=== PATIENT | male | born 1945 | race Caucasian/White ===

== ENCOUNTER 2020-02-19 09:37 | Emergency (ER) | payer OTHER, SELFPAY ==
[2020-02-19] VITALS (25 sets, daily range): BP systolic 67–194; BP diastolic 39–112; PULSE 90–121; RESP 0–29; TEMP 36.9; O2SAT 86–98; BMI 34.8
--- NOTE | 2020-02-19 10:06 | XR_ITS ---
WS: [id number] Portable AP upright chest, 02/19/2020 Clinical Data: dyspnea Comparison: Portable chest, 07/21/2014 Findings: Bilateral opacities in the lungs which probably represent pneumonia are present. The heart is normal. No nodules, masses or effusions are seen. Midline sternotomy sutures are present. The aort ic arch and descending aorta show calcification and tortuosity. Monitor leads are on the chest wall. 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 XR/XR chest 1V portable [id number] Impression: Bilateral opacities of the lungs which probably represent pneumonia.
[2020-02-19 10:32] LABS: ABG PCO2 57.2 mmHg (35-45); ABG PH Result 7.38 (7.35-7.45); Arterial Blood Gas Hematocrit 41.9 % (42-52); Base Excess ABG 7.1 mmol/L (-2.0-2.0); Blood Gas Operator Identificat CK; Blood Gas Sample Site Brachial, left; Blood Gas Sample Type Arterial; HCO3 ABG 34.1 mmol/L (22-26); Oxygen Device NC; PO2 ABG 57.7 mmHg (80.0-100.0)
--- NOTE | 2020-02-19 10:36 | PC.NURSE ---
pt here for fall but Pt has covid symptoms. Pt has audible wheezes heard throughout lungs anteriorly. Pt has course lung sounds throughout. pt has intermittent fevers and productive cough reported.
[2020-02-19 10:52] LABS: Basophils % 0.2 %; Hematocrit 45.3 % (42.0-52.0); Hemoglobin 13.9 g/dL (11.7-16.6); Lymphocytes # 0.5 10^3/uL (0.8-4.8); Lymphocytes % 7.4 %; Mean Corpuscular HGB Conc 30.7 g/dL (30.0-36.0); Mean Corpuscular Hemoglobin 27.6 pg (28.0-34.0); Mean Corpuscular Volume 89.9 fL (80-94); Mean Platelet Volume 10.4 fL (7.4-10.4); Monocytes # 0.3 10^3/uL (0.2-0.9); Neutrophils # 5.73 10^3/uL (1.8-7.7); Neutrophils % 87.1 %; Nucleated Red Blood Cells % 0 %; Platelet Count 175 10^3/cmm (130-400); Red Blood Count 5.04 10^6/uL (4.1-5.3); White Blood Count 6.6 10^3/uL (4.0-10.0)
[2020-02-19 10:55] LABS: Lactic Sepsis W/Reflex 1.3 mmol/L (0.5-2.2)
[2020-02-19 11:05] LABS: Add Urine Culture? No; Add Urine Microscopic? YES; Bacteria Urine 1+ /hpf; Bilirubin Urine 1+ (Negative); Blood Urine 2+ (Negative); Glucose Urine UA Trace (Normal); Ketones Urine 1+ (Negative); Leukocyte Esterase Urine Negative (Negative); Mucus Urine 2+ /hpf; Nitrate Urine Negative (Negative); Protein Urine 1+ (Negative); RBC Urine 0-4 /hpf (0-2); Urine Appearance Hazy (CLEAR); Urine Color Dark Yellow (Yellow); Urobilinogen Urine 4 mg/dL (Negative); WBC Urine 0-4 /hpf (0-5)
--- NOTE | 2020-02-19 11:15 | W.ED.FALL ---
HPI - Fall General: Chief Complaint: Fall Stated Complaint: FALL/ FEVER/ POSSIBLE COVID Time Seen by Provider: 02/19/20 10:05 History of Present Illness: HPI Narrative: 75-year-old male presents emergency room after a fall at home EMS [facility] health care nurse found him down he has been getting progressively worsening for the last week he has been sick with a cough and congestion he has not been eating or drinking well. He said intermittent fever cough and shortness of breath. Patient usually wears 5 L/min nasal cannula. MD complaint: fall Onset (ago): minute(s) Fall from: chair Fall witnessed: yes, by family Place fall occurred: home Loss of consciousness: None Prolonged down time: no Symptoms prior to fall: none Context: tripped/slipped Associated symptoms-after fall: Reports lightheadedness, short of breath and weakness; Denies abdominal pain, chest pain, confusion, difficulty walking, headache(s), hematuria, neck pain, numbness or vertigo Review of Systems Const: Denies: fever(s), chills, body aches, change in appetite, fatigue or malaise ENMT: Denies: throat pain, ear or mastoid pain, nasal discharge or nasal congestion Card: Reports: lightheadedness; Denies: chest pain Resp: Denies: dyspnea, productive cough or non-productive cough GI: Denies: abdominal pain : Denies: hematuria Musc: Denies: neck pain Skin/Breast: Denies: rash or pruritus Neuro: Denies: headache(s), difficulty walking, vertigo or confusion [facility] ED PFSH: Medical History (Updated 02/21/20 @ 11:30 by Magdiel Doan DO) Congestive heart failure COPD (chronic obstructive pulmonary disease) CPAP (continuous positive airway pressure) dependence Surgical History (Updated 02/21/20 @ 11:30 by Magdiel Doan DO) History of heart surgery History of surgery Physical Exam Const: COMMON NORMALS: average body habitus, patient oriented x3 and alert GENERAL APPEARANCE: cooperative, comfortable, well kempt and well developed NUTRITIONAL APPEARANCE: obese ORIENTATION/CONSCIOUSNESS: Yes awake, Yes oriented to person and Yes oriented to place HENMT: COMMON NORMALS: normocephalic, atraumatic, EAC's normal, TM's normal bilaterally, Normal external nose present, moist oral mucous membranes and oropharynx normal HEAD & SCALP: normocephalic and atraumatic NOSE: Normal external nose present EXTERNAL AUDITORY CANAL: EAC's normal TYMPANIC MEMBRANE: TM's normal bilaterally MOUTH: Normal oral and palatal mucosa present, lip normal and tongue normal THROAT: posterior oropharynx normal and tonsils normal Eye: COMMON NORMALS: Equal, round and reactive pupils present, EOMs intact bilaterally, conjunctivae normal and no scleral icterus CONJUNCTIVA: Yes conjunctivae normal PUPIL: Yes Equal, round and reactive pupils present Neck/C-Spine: COMMON NORMALS: full ROM, no lymphadenopathy, supple, no meningeal signs and Thyroid normal THYROID: Thyroid normal and asymmetrical Lymph: LYMPHATIC: no lymphadenopathy noted Resp: COMMON NORMALS: normal respiratory effort, No retractions, No use of accessory muscles and clear to auscultation bilaterally AUSCULTATION: clear to auscultation bilaterally Cardio: COMMON NORMALS: regular rate and regular rhythm RATE: regular rate RHYTHM: regular rhythm HEART SOUNDS: no murmurs GI: COMMON NORMALS: Normal to inspection, nondistended, normoactive bowel sounds present, Soft to palpation and No hepatosplenomegaly present PALPATION: Yes Soft to palpation and Yes No hepatosplenomegaly present : COMMON NORMALS: Yes no CVA tenderness BLADDER/KIDNEY EXAM: Yes no CVA tenderness Back/Pelvis: COMMON NORMALS: no CVA tenderness LUMBAR SPINE/LOWER BACK: Yes normal to inspection Extremity: COMMON NORMALS: no clubbing, cyanosis or edema, no calf tenderness and no pedal edema Neuro: COMMON NORMALS: patient oriented x3 SENSORIUM/ORIENTATION: Yes alert, Yes oriented to person and Yes oriented to place MENINGEAL SIGNS: Yes no meningeal signs Psych: APPEARANCE: Yes well kempt Skin: COMMON NORMALS: no rashes or lesions noted and turgor normal GENERAL SKIN EXAM: no rashes or lesions noted and turgor normal Procedures Intubation Time out performed: Yes sedative: Etomidate paralytic: Succinylcholine Laryngoscope: fiber optic video scope Assist Device Used: fiber optic device ET Tube Size: 8 ET Tube Uncuffed: No Tube Secured Depth (cm): 22 Tube Secured Location: teeth Tube Placement Confirmation: visualized tube passing through cords, equal breath sounds bilaterally, no breath sounds over epigastrium and confirmation by capnometry Patient Tolerated Procedure: well Intubation Complications: none Course Vital Signs: Vital signs: Vital Signs Temperature 98.4 F 02/19/20 09:50 Pulse Rate 103 H 02/19/20 16:25 Respiratory Rate 14 02/19/20 16:25 Blood Pressure 128/67 02/19/20 16:25 Pulse Oximetry 94 02/19/20 16:25 MDM - Fall MDM Narrative: Medical decision making narrative: Patient initially placed on high flow nasal cannula he became increasingly confused and would not keep it on. We discussed with him intubation he expressed wish to be intubated. After he was intubated we were finally able to get a hold of family members they stated he had been on hospice but that they wanted everything done and were revoking hospice. Patient will be transferred to [facility] for availability of viral ICU bed as well as options for advanced treatment. Given his severe COPD believe he will need proning and probable convalescent plasma another potential therapies that are not available here. Lab Data: Labs: Lab Results 02/19/20 02/19/20 02/19/20 Range/Units 10:15 10:15 10:15 WBC 6.6 (4.0-10.0) 10^3/ uL RBC 5.04 (4.1-5.3) 10^6/u L Hgb 13.9 (11.7-16.6) g/dL Hct 45.3 (42.0-52.0) % MCV 89.9 (80-94) fL MCH 27.6 L (28.0-34.0) pg MCHC 30.7 (30.0-36.0) g/dL RDW 13.0 (12.1-15.1) % Plt Count 175 (130-400) 10^3/c mm MPV 10.4 (7.4-10.4) fL Neut % (Auto) 87.1 % Lymph % (Auto) 7.4 % Bradford % (Auto) 5.0 % Eos % (Auto) 0.0 % Baso % (Auto) 0.2 % Neut # (Auto) 5.73 (1.8-7.7) 10^3/u L Lymph # (Auto) 0.5 L (0.8-4.8) 10^3/u L Bradford # (Auto) 0.3 (0.2-0.9) 10^3/u L Eos # (Auto) 0.0 (0.0-0.8) 10^3/u L Baso # (Auto) 0.0 (0.0-0.1) 10^3/u L Nucleated RBC % (a uto) 0 % Nucleated RBCs # 0.0 /100WBC Fibrinogen 783 H (174-498) mg/dL D-Dimer 2.23 H (0-0.59) ug/mIFE U Specimen Type Sample Site ABG pH (7.35-7.45) ABG pCO2 (35-45) mmHg ABG pO2 (80.0-100.0) mmH g ABG HCO3 (22-26) mmol/L ABG O2 Saturation ABG Base Excess (-2.0-2.0) mmol/ L Sunny Test A-a O2 Gradient (5-10) mmHg Hematocrit (42-52) % Hgb O2 Saturation (95-100) % Carboxyhemoglobin (0.4-20.1) %THgb Methemoglobin (0.4-1.5) % Total Hemoglobin (14-18) g/dL Ionized Calcium (1.1-1.4) mmol/L O2 Delivery Device O2 Liters/Min % FiO2 % Tidal Volume PEEP cmH20 Track Surfacing Machine Operator ID Sodium 141 (136-145) mmol/L Potassium 3.3 L (3.5-5.1) mmol/L Chloride 96 L (98-107) mmol/L Carbon Dioxide 31 H (22-29) mmol/L Anion Gap 17.3 (5-19) BUN 15 (8-23) mg/dL Creatinine 1.0 (0.7-1.2) mg/dL GFR Calculation Not Reportable Glucose 170 H (65-115) mg/dL Calculated Osmolal ity 297 H (285-295) mOsm/k g Lactic Acid (0.5-2.2) mmol/L Calcium 8.7 (8.5-10.5) mg/dL Magnesium 2.3 (1.7-2.3) mg/dL Ferritin 870 H (30-400) ng/mL Total Bilirubin 0.7 (0.15-1.2) mg/dL AST 43 H (0-40) U/L ALT 22 (0-41) U/L Alkaline Phosphata se 79 (40-130) IU/L Lactate Dehydrogen ase 451 H (135-225) U/L Creatine Kinase 46 (39-308) U/L C-Reactive Protein 194.6 H (0.0-4.9) mg/L NT-Pro-B Natriuret Pep 532 H (0-450) pg/mL Total Protein 7.0 (6.6-8.7) g/dL Albumin 3.6 (3.5-5.2) g/dL Globulin 3.4 (1.3-4.6) g/dL Procalcitonin 0.23 (0-0.5) ng/mL Urine Color (Yellow) Urine Appearance (CLEAR) Urine pH (5-7) Ur Specific Gravit y (1.005-1.030) Urine Protein (Negative) Urine Glucose (UA) (Normal) Urine Ketones (Negative) Urine Blood (Negative) Urine Nitrate (Negative) Urine Bilirubin (Negative) Urine Urobilinogen (Negative) mg/dL Ur Leukocyte Lillian ase (Negative) Urine RBC (0-2) /hpf Urine WBC (0-5) /hpf Ur Squamous Epith Cells (0-5) /hpf Amorphous Sediment Urine Bacteria (NONE) /hpf Urine Mucus /hpf SARS-CoV-2 Ag (Rap id) (Negative) 02/19/20 02/19/20 02/19/20 Range/Units 10:15 10:15 10:18 WBC (4.0-10.0) 10^3/ uL RBC (4.1-5.3) 10^6/u L Hgb (11.7-16.6) g/dL Hct (42.0-52.0) % MCV (80-94) fL MCH (28.0-34.0) pg MCHC (30.0-36.0) g/dL RDW (12.1-15.1) % Plt Count (130-400) 10^3/c mm MPV (7.4-10.4) fL Neut % (Auto) % Lymph % (Auto) % Bradford % (Auto) % Eos % (Auto) % Baso % (Auto) % Neut # (Auto) (1.8-7.7) 10^3/u L Lymph # (Auto) (0.8-4.8) 10^3/u L Bradford # (Auto) (0.2-0.9) 10^3/u L Eos # (Auto) (0.0-0.8) 10^3/u L Baso # (Auto) (0.0-0.1) 10^3/u L Nucleated RBC % (a uto) % Nucleated RBCs # /100WBC Fibrinogen (174-498) mg/dL D-Dimer (0-0.59) ug/mIFE U Specimen Type Arterial Sample Site Brachial, left ABG pH 7.38 (7.35-7.45) ABG pCO2 57.2 H (35-45) mmHg ABG pO2 57.7 L (80.0-100.0) mmH g ABG HCO3 34.1 H (22-26) mmol/L ABG O2 Saturation ABG Base Excess 7.1 H (-2.0-2.0) mmol/ L Sunny Test N/a A-a O2 Gradient (5-10) mmHg Hematocrit 41.9 L (42-52) % Hgb O2 Saturation (95-100) % Carboxyhemoglobin (0.4-20.1) %THgb Methemoglobin (0.4-1.5) % Total Hemoglobin (14-18) g/dL Ionized Calcium (1.1-1.4) mmol/L O2 Delivery Device Nc O2 Liters/Min 6.0 % FiO2 44.0 % Tidal Volume PEEP cmH20 Track Surfacing Machine Operator ID Ck Sodium (136-145) mmol/L Potassium (3.5-5.1) mmol/L Chloride (98-107) mmol/L Carbon Dioxide (22-29) mmol/L Anion Gap (5-19) BUN (8-23) mg/dL Creatinine (0.7-1.2) mg/dL GFR Calculation Glucose (65-115) mg/dL Calculated Osmolal ity (285-295) mOsm/k g Lactic Acid 1.3 (0.5-2.2) mmol/L Calcium (8.5-10.5) mg/dL Magnesium (1.7-2.3) mg/dL Ferritin (30-400) ng/mL Total Bilirubin (0.15-1.2) mg/dL AST (0-40) U/L ALT (0-41) U/L Alkaline Phosphata se (40-130) IU/L Lactate Dehydrogen ase (135-225) U/L Creatine Kinase (39-308) U/L C-Reactive Protein (0.0-4.9) mg/L NT-Pro-B Natriuret Pep (0-450) pg/mL Total Protein (6.6-8.7) g/dL Albumin (3.5-5.2) g/dL Globulin (1.3-4.6) g/dL Procalcitonin (0-0.5) ng/mL Urine Color Dark yellow (Yellow) Urine Appearance Hazy A (CLEAR) Urine pH 5.0 (5-7) Ur Specific Gravit y 1.020 (1.005-1.030) Urine Protein 1+ H (Negative) Urine Glucose (UA) Trace H (Normal) Urine Ketones 1+ H (Negative) Urine Blood 2+ H (Negative) Urine Nitrate Negative (Negative) Urine Bilirubin 1+ H (Negative) Urine Urobilinogen 4 H (Negative) mg/dL Ur Leukocyte Lillian ase Negative (Negative) Urine RBC 0-4 H (0-2) /hpf Urine WBC 0-4 H (0-5) /hpf Ur Squamous Epith Cells 5-10 H (0-5) /hpf Amorphous Sediment Not Reportable Urine Bacteria 1+ H (NONE) /hpf Urine Mucus 2+ /hpf SARS-CoV-2 Ag (Rap id) (Negative) 02/19/20 02/19/20 Range/Units 10:40 13:25 WBC (4.0-10.0) 10^3/ uL RBC (4.1-5.3) 10^6/u L Hgb (11.7-16.6) g/dL Hct (42.0-52.0) % MCV (80-94) fL MCH (28.0-34.0) pg MCHC (30.0-36.0) g/dL RDW (12.1-15.1) % Plt Count (130-400) 10^3/c mm MPV (7.4-10.4) fL Neut % (Auto) % Lymph % (Auto) % Bradford % (Auto) % Eos % (Auto) % Baso % (Auto) % Neut # (Auto) (1.8-7.7) 10^3/u L Lymph # (Auto) (0.8-4.8) 10^3/u L Bradford # (Auto) (0.2-0.9) 10^3/u L Eos # (Auto) (0.0-0.8) 10^3/u L Baso # (Auto) (0.0-0.1) 10^3/u L Nucleated RBC % (a uto) % Nucleated RBCs # /100WBC Fibrinogen (174-498) mg/dL D-Dimer (0-0.59) ug/mIFE U Specimen Type Arterial Sample Site Radial, right ABG pH 7.33 L (7.35-7.45) ABG pCO2 63.7 H* (35-45) mmHg ABG pO2 103.0 H (80.0-100.0) mmH g ABG HCO3 33.8 H (22-26) mmol/L ABG O2 Saturation 97.5 ABG Base Excess 6.1 H (-2.0-2.0) mmol/ L Sunny Test Pos A-a O2 Gradient 51.1 H (5-10) mmHg Hematocrit 36.8 L (42-52) % Hgb O2 Saturation 95.7 (95-100) % Carboxyhemoglobin 0.9 (0.4-20.1) %THgb Methemoglobin 1.0 (0.4-1.5) % Total Hemoglobin 12.0 L (14-18) g/dL Ionized Calcium 1.1 (1.1-1.4) mmol/L O2 Delivery Device Vent O2 Liters/Min % FiO2 80.0 % Tidal Volume 0.50 PEEP 10.0 cmH20 Track Surfacing Machine Operator ID [id number] Sodium 143.0 (136-145) mmol/L Potassium 3.3 L (3.5-5.1) mmol/L Chloride (98-107) mmol/L Carbon Dioxide (22-29) mmol/L Anion Gap (5-19) BUN (8-23) mg/dL Creatinine (0.7-1.2) mg/dL GFR Calculation Glucose 158.0 H (65-115) mg/dL Calculated Osmolal ity (285-295) mOsm/k g Lactic Acid (0.5-2.2) mmol/L Calcium (8.5-10.5) mg/dL Magnesium (1.7-2.3) mg/dL Ferritin (30-400) ng/mL Total Bilirubin (0.15-1.2) mg/dL AST (0-40) U/L ALT (0-41) U/L Alkaline Phosphata se (40-130) IU/L Lactate Dehydrogen ase (135-225) U/L Creatine Kinase (39-308) U/L C-Reactive Protein (0.0-4.9) mg/L NT-Pro-B Natriuret Pep (0-450) pg/mL Total Protein (6.6-8.7) g/dL Albumin (3.5-5.2) g/dL Globulin (1.3-4.6) g/dL Procalcitonin (0-0.5) ng/mL Urine Color (Yellow) Urine Appearance (CLEAR) Urine pH (5-7) Ur Specific Gravit y (1.005-1.030) Urine Protein (Negative) Urine Glucose (UA) (Normal) Urine Ketones (Negative) Urine Blood (Negative) Urine Nitrate (Negative) Urine Bilirubin (Negative) Urine Urobilinogen (Negative) mg/dL Ur Leukocyte Lillian ase (Negative) Urine RBC (0-2) /hpf Urine WBC (0-5) /hpf Ur Squamous Epith Cells (0-5) /hpf Amorphous Sediment Urine Bacteria (NONE) /hpf Urine Mucus /hpf SARS-CoV-2 Ag (Rap id) Positive H (Negative) Discharge Plan Discharge Patient Disposition: Xfer Other Referrals: Tucker Leal MD [Primary Care Provider] - Discharge Date/Time: 02/19/20 17:00 Coding Level of Care Code ED Bathhouse Keeper for Chg Fwd Exam Comprehensive
[2020-02-19 11:20] LABS: SARS Covid-2 Antigen Positive (Negative)
--- NOTE | 2020-02-19 11:26 | PC.NURSE ---
Patient rounding PAtient continues to remove high flow NC, nurse having to intervene and remind patient to leave NC in place due to low oxygen saturations. Patient appears confused. Nurse attempted to place patient in prone position, patients O2 levels increased to 94% in left lateral position, however patient would not maintain position
[2020-02-19 11:27] LABS: NT Pro B Type Natriuretic Pept 532 pg/mL (0-450); Procalcitonin 0.23 ng/mL (0-0.5)
[2020-02-19 11:36] LABS: Fibrinogen 783 mg/dL (174-498)
[2020-02-19 11:38] LABS: Alanine Aminotransferase 22 U/L (0-41); Albumin Level 3.6 g/dL (3.5-5.2); Alkaline Phosphatase 79 IU/L (40-130); Anion Gap 17.3 (5-19); Aspartate Amino Transferase 43 U/L (0-40); Blood Urea Nitrogen 15 mg/dL (8-23); C Reactive Protein 194.6 mg/L (0.0-4.9); Calcium 8.7 mg/dL (8.5-10.5); Carbon Dioxide 31 mmol/L (22-29); Chloride 96 mmol/L (98-107); Creatine Phosphokinase 46 U/L (39-308); Ferritin 870 ng/mL (30-400); Globulin 3.4 g/dL (1.3-4.6); Glucose 170 mg/dL (65-115); Lactate Dehydrogenase 451 U/L (135-225); Magnesium 2.3 mg/dL (1.7-2.3); Osmolality Calculated 297 mOsm/kg (285-295); Potassium 3.3 mmol/L (3.5-5.1); Sodium 141 mmol/L (136-145); Total Bilirubin 0.7 mg/dL (0.15-1.2)
[2020-02-19 11:39] LABS: D Dimer 2.23 ug/mIFEU (0-0.59)
[2020-02-19] MEDS: succinylcholine 20 mg/mL SDV 10mL 120 MG IVP (12:31)
[2020-02-19] MEDS: propofol 1,000 MG/100 ML INJ 4.8 MG IV (12:41)
[2020-02-19 13:38] LABS: ABG PH Result 7.33 (7.35-7.45); Alveolar-Arterial Oxygen Gradi 51.1 mmHg (5-10); Arterial Blood Gas Hematocrit 36.8 % (42-52); Base Excess ABG 6.1 mmol/L (-2.0-2.0); Blood Gas Allen Test Pos; Blood Gas Sample Site Radial, right; Blood Gas Sample Type Arterial; Carboxyhemoglobin 0.9 %THgb (0.4-20.1); HCO3 ABG 33.8 mmol/L (22-26); HGB O2 Sat 95.7 % (95-100); Ionized Calcium Level - ABG 1.1 mmol/L (1.1-1.4); Oxygen Device VENT; Oxygen Saturation ABG 97.5; Potassium Level - ABG 3.3 mmol/L (3.5-5.0)
[2020-02-19 13:39] LABS: ABG PCO2 63.7 mmHg (35-45)
[2020-02-19] MEDS: vecuronium 10 mg SDV IVP (14:27)
[2020-02-19] MEDS: fentaNYL 50 mcg/mL INJ 2mL IVP ×2 (14:47→15:44)
--- NOTE | 2020-02-19 14:59 | XR_ITS ---
WS: [id number] Portable AP supine chest, 02/19/2020, 1507 hours Clinical Data: post intubation Comparison: Portable chest, 02/19/2020, 1024 hours Findings: The endotracheal tube is above the amy. The nasogastric tube ends in the midesophagus. T he bilateral patchy opacifications have increased. There is a moderate right pleural effusion and a s mall left effusion. The heart remains same. Monitor leads on the chest wall. Osteoarthritic change of both shoulders is noted. XR/XR chest 1V portable [id number] Impression: 1. Endotracheal tube above the amy. 2. Enteric tube ends in the mid esophagus. 3. Worsening of bilateral pulmonary opacifications which probably represents wo rsening pneumonia. 4. Development of right pleural effusion and minimal left pleural effusion.
[2020-02-19] MEDS: DOPamine drip 400 MG/250 ML PREMIX 22.5 MG IV (16:07)
== END 2020-02-19 17:00 | disposition other institution (70) ==
PROVIDERS: Emergency Provider Family Medicine; Family Provider Urology; PCP Urology
DX: U07.1 COVID-19 (principal); J44.9 Chronic obstructive pulmonary disease, unspecified; I50.9 Heart failure, unspecified; I70.0 Atherosclerosis of aorta
CPT/HCPCS: 12345; 31500; 36600; 51702; 71045; 80051; 80053; 81001; 82550; 82728; 82803; 82810; 83605; 83615; 83735; 83880; 83986; 84145; 85025; 85378; 85384; 86140; 87426; 94002; 94799; 96365; 96366; 96367; 96375; 96376; 99284; 99291; J0330; J1265; J2704; J3010; J3490